=== PATIENT | male | born 1995 | race Two or more races ===

== ENCOUNTER 2023-04-08 15:53 | Emergency (ER) | payer SELFPAY ==
[~2023-04-08] VITALS: Ht 182.9 cm; Wt 45.5 kg
[2023-04-08] MEDS ORDERED: SODIUM CHLORIDE 0.9% 1,000 ML IV ONE ×2 (17:00→21:30)
[2023-04-08] MEDS ORDERED: IBUPROFEN 600 MG TAB PO ONE (17:00)
[2023-04-08] MEDS ORDERED: MECLIZINE HCL 25 MG TAB PO ONE (17:00)
[2023-04-08] MEDS ORDERED: ONDANSETRON HCL 4 MG/2 ML VIAL IV ONE (17:00)
[2023-04-08 17:37] LABS: Basophils # (auto) 0 10 ^3/uL (0-0.2); Eosinophils # (auto) 0 10 ^3/uL (0-0.8); Lymphocytes # (auto) 0.8 10 ^3/uL (0.4-5.4); Lymphocytes % (auto) 5.6 % (10.0-50.0); Monocytes # (auto) 0.5 10 ^3/uL (0-1.3); Monocytes % (auto) 3.5 % (0.0-12.0)
[2023-04-08 17:39] LABS: Basophils % (auto) 0.3 % (0.0-2.0); Hematocrit 52.9 % (41.0-53.0); Mean Corpuscular Hemoglobin 31.2 pg (28.0-32.0); Mean Corpuscular Volume 91.7 fL (80.0-100.0); Neutrophils # (auto) 12.8 10 ^3/uL (1.6-8.6); Neutrophils % (auto) 90.6 % (37.0-80.0); Nucleated Red Blood Cells % 0.1 %; Red Blood Cells 5.77 10^6/uL (4.5-5.90); Red Cell Distribution Width 14.1 % (11.8-14.3); White Blood Cell 14.1 10^3/uL (4.4-10.8)
[2023-04-08 18:02] LABS: Albumin 5.5 g/dL (3.4-5.0); Calcium 10.1 mg/dL (8.5-10.1); Potassium 3.9 mmol/L (3.5-5.1)
[2023-04-08 18:07] LABS: BUN/Creatinine Ratio 14.1 (10.0-20.0); Bilirubin, Total 1.5 mg/dL (0.2-1.0); Total Protein 10.4 g/dL (6.4-8.2)
[2023-04-08 20:20] VITALS: BP 108/71; RESP 19; TEMP 97.8; O2SAT 97
[2023-04-08 20:48] LABS: Urine Bacteria NONE SEEN /hpf (None Seen); Urine Blood Negative /uL (Negative); Urine Hyaline Cast MANY /lpf (0 - 2); Urine Mucus FEW (None Seen); Urine Specific Gravity 1.021 (1.001-1.035); Urine WBC 8 /hpf (0 - 3)
[2023-04-08] MEDS ORDERED: ZOFR4T PO (21:44)
[2023-04-08] MEDS ORDERED: MECL25CH85 PO (21:44)
[2023-04-08] MEDS ORDERED: IBUP-1453 PO (21:44)
[2023-04-08] MEDS ORDERED: CEPH500C PO (21:44)
[2023-04-08 22:05] VITALS: PULSE 92
== END 2023-04-08 21:44 | disposition home or self-care (01) ==
LOC: EDBD 15:53 → ER 15:53
DX: S76.012A Strain of muscle, fascia and tendon of left hip, initial encounter (principal); S76.011A Strain of muscle, fascia and tendon of right hip, initial encounter; R42 Dizziness and giddiness; N39.0 Urinary tract infection, site not specified; E86.0 Dehydration; X58.XXXA Exposure to other specified factors, initial encounter; Y93.89 Activity, other specified; Y92.89 Other specified places as the place of occurrence of the external cause; Y99.8 Other external cause status
CPT/HCPCS: 36415; 80053; 81001; 81025; 83690; 84484; 85025; 93005; 96361; 96374; 99284; J2405; J7030; J8597